=== PATIENT | male | born 1945 | race Caucasian/White ===

== ENCOUNTER → 2020-07-24 | Outpatient (CLI) | payer OTHER ==
[~2020-07-24] VITALS: Ht 167.6 cm; Wt 68.5 kg
[~2020-07-24] MED LIST: REGADENOSON 0.4 MG/5 ML PF SYG IVP SCH
== END | disposition home or self-care (01) ==
LOC: SHCH 08:29
PROVIDERS: ATTEND Internal Medicine
DX: R06.02 Shortness of breath (principal); R94.31 Abnormal electrocardiogram [ECG] [EKG]
CPT/HCPCS: 78452; 93017; 96374; A9500 ×2; J2785

== ENCOUNTER 2020-08-18 05:50 | Day surgery (SDC) | payer OTHER ==
[2020-08-14 10:09] VITALS: BP 156/94
[2020-08-14 11:40] LABS: EOSINOPHILS % (AUTO) 6.7 % (0.0-8.0); LYMPHOCYTES % (AUTO) 18.1 % (21.0-51.0); MEAN CORPUSCULAR HEMOGLOBIN 31.6 pg (27.0-33.0); MEAN CORPUSCULAR HGB CONC 33.4 g/dL (32.0-36.0); MEAN CORPUSCULAR VOLUME 94.6 fL (79-99); MONOCYTES % (AUTO) 8.4 % (3.0-13.0); NEUTROPHILS % (AUTO) 65.5 % (40.0-77.0); PLATELET COUNT (AUTO) 235 K/uL (130-400); RED BLOOD CELL COUNT(AUTO) 4.65 MIL/uL (4.50-6.20); RED CELL DISTRIBUTION WIDTH 12.5 % (11.0-15.5); WHITE BLOOD COUNT (AUTO) 6.7 K/uL (4.8-10.8)
[2020-08-14 11:47] LABS: APPEARANCE,URINE Clear (CLEAR); BILIRUBIN,URINE Negative (NEGATIVE); COLOR,URINE Yellow (YELLOW); GLUCOSE, URINE (UA) Negative (NEGATIVE); KETONES,URINE Negative (NEGATIVE); LEUKOCYTE ESTERASE ,URINE Negative (NEGATIVE); NITRATE,URINE Negative (NEGATIVE); OCCULT BLOOD,URINE Negative (NEGATIVE); PROTEIN,URINE Negative (NEGATIVE); UROBILINOGEN,URINE 0.2 mg/dL (0.2-1.0)
[2020-08-14 11:51] LABS: CREATININE 1.6 mg/dL (0.5-1.5); POTASSIUM 4.7 mmol/L (3.5-5.1)
[2020-08-14 11:53] LABS: INR 0.98 (0.85-1.15); PROTHROMBIN TIME 10.7 SEC (9.6-11.6)
[2020-08-14 11:54] LABS: PARTIAL THROMBOPLASTIN TIME 28.7 SEC (26.3-35.5)
[~2020-08-18] VITALS: Ht 167.6 cm; Wt 69.3 kg
[2020-08-18] VITALS (10 sets, daily range): BP systolic 122–147; BP diastolic 72–89
[2020-08-18] MEDS ORDERED: NACL 0.9% 1000ML 1,000 ML IV ONE (06:11)
[2020-08-18] MEDS ORDERED: DONE5TAB33 PO (07:01)
[2020-08-18] MEDS ORDERED: TELM40TA8 PO (07:01)
[2020-08-18] MEDS ORDERED: AMLO-257 PO (07:01)
[2020-08-18] MEDS ORDERED: CHOL1CRY2 PO (07:01)
[2020-08-18] MEDS ORDERED: ASPI-1197 PO (07:01)
[2020-08-18] MEDS ORDERED: ATOR40TA69 PO (07:01)
[2020-08-18] MEDS ORDERED: ASCO500T20 PO (07:01)
[2020-08-18] MEDS ORDERED: ZINC220T4 PO (07:01)
[2020-08-18] MEDS ORDERED: NICARDIPINE 25MG INJ IV ONE (07:05)
[2020-08-18] MEDS ORDERED: IOHEXOL-350 50ML VIAL IV ONE (07:05)
[2020-08-18] MEDS ORDERED: HEPARIN 10,000 UNIT/10ML (1,000 UNIT/ML) VIAL ONE (07:05)
[2020-08-18] MEDS ORDERED: NITROGLYCERIN 2 MG VIAL IV ONE (07:05)
[2020-08-18] MEDS ORDERED: LIDOCAINE HCL 400MG/20ML VIAL ONE (07:06)
[2020-08-18] MEDS ORDERED: FENTANYL CITRATE PF 50 MCG/1 ML 2ML VIAL ONE (07:39)
[2020-08-18] MEDS ORDERED: MIDAZOLAM HCL 1 MG/ML 2ML VIAL ONE (07:39)
[2020-08-18] MEDS ORDERED: SOLU-MEDROL 125MG VIAL ONE (07:48)
[2020-08-18] MEDS ORDERED: IOHEXOL 350 MG/ML 100ML INFUS..BTL IV ONE (08:13)
[2020-08-18] MEDS ORDERED: NACL 0.9% 1000ML 1,000 ML IV SCH (08:30)
== END 2020-08-18 13:15 | disposition home or self-care (01) ==
LOC: DAH 05:50
PROVIDERS: ATTEND Internal Medicine
DX: I25.119 Atherosclerotic heart disease of native coronary artery with unspecified angina pectoris (principal); Z20.822 Contact with and (suspected) exposure to COVID-19; I11.0 Hypertensive heart disease with heart failure; I50.22 Chronic systolic (congestive) heart failure; E78.5 Hyperlipidemia, unspecified; M19.90 Unspecified osteoarthritis, unspecified site; Z91.041 Radiographic dye allergy status; Z88.3 Allergy status to other anti-infective agents; Z79.01 Long term (current) use of anticoagulants; Z79.899 Other long term (current) drug therapy; Z87.891 Personal history of nicotine dependence; Z86.73 Personal history of transient ischemic attack (TIA), and cerebral infarction without residual deficits; Z79.82 Long term (current) use of aspirin
CPT/HCPCS: 36415; 71045; 80048; 81003; 85025; 85610; 85730; 87635; 93005; 93458; A4215; A4216; A4221; A4222; A4223 ×3; A4606; A4663; A6258; A6260; C1769; C9803; J1644 ×2; J2250; J2930; J3010; J3490 ×3; J7030; Q9965; Q9967; 96360; 96361; 99156; 99157